=== PATIENT | male | born 1970 | race Hispanic/Latino ===

== ENCOUNTER 2017-11-26 14:37 | Inpatient (IN) | payer OTHER ==
[2017-11-26 14:38] VITALS: BMI 18.4
--- NOTE | 2017-11-26 15:40 | C.PDOC ---
History Of Present Illness 47-YEAR-OLD MALE, PRESENTS TO THE EMERGENCY DEPARTMENT WITH COMPLAINTS OF THREE- DAY HISTORY OF EPIGASTRIC ABDOMINAL PAIN, NON-BILIOUS/NON-BLOODY VOMITING AND NON-BLOODY/LOOSE-WATERY DIARRHEA. PAIN IS CONSTANT IN NATURE AND LOCALIZED. PT HAS A HISTORY OF PANCREATITIS, HAD A WHIPPLE PROCEDURE AT [facility] 2014. PATIENT STATES HE STILL HAS GALLBLADDER AND APPENDIX. DENIES FEVERS, CHILLS. EXAM: HEENT ANICTERIC ABD EPIG TEN, SOFT NO R/G Time Seen by Provider: 11/26/17 15:10 Chief Complaint (Nursing): Abdominal Pain History Per: Patient History/Exam Limitations: no limitations Onset/Duration Of Symptoms: Days Current Symptoms Are (Timing): Still Present Severity: Moderate Past Medical History Reviewed: Historical Data, Nursing Documentation, Vital Signs Vital Signs: Last Vital Signs Temp 98 F 11/26/17 18:29 Pulse 84 11/26/17 18:29 Resp 18 11/26/17 18:29 BP 153/96 H 11/26/17 18:29 Pulse Ox 99 11/26/17 18:39 - Medical History PMH: Pancreatitis - [facility] DILATION OF INTESTINE (08/06/15) DX ULTRASOUND-DIGESTIVE (07/31/15) ENDOSC RETROGRADE CHOLANGIOPANCREATOGRAPHY [ERCP] (08/14/15) ESOPHAGOGASTRODUODENOSCOPY [EGD] W/CLOSED BIOPSY (08/06/15) OTHER ENDOSCOPY OF SM INTEST (08/14/15) Family History: States: No Known Family Hx - Social History Hx Tobacco Use: No Hx Alcohol Use: Yes (years ago) Hx Substance Use: No Review Of Systems Except As Marked, All Systems Reviewed And Found Negative. Constitutional: Negative for: Fever, Chills Cardiovascular: Negative for: Chest Pain, Palpitations Respiratory: Negative for: Shortness of Breath Gastrointestinal: Positive for: Nausea, Vomiting, Abdominal Pain, Diarrhea Musculoskeletal: Negative for: Back Pain Skin: Negative for: Rash Neurological: Negative for: Weakness, Numbness, Headache, Dizziness Physical Exam - Physical Exam Appears: Non-toxic, No Acute Distress Skin: Warm, Dry, No Rash Head: Atraumatic, Normacephalic Eye(s): bilateral: Normal Inspection, PERRL, Other (ANICTERIC) Nose: Normal Oral Mucosa: Moist Lips: Normal Appearing Neck: Normal ROM Cardiovascular: Rhythm Regular, No Murmur Respiratory: Normal Breath Sounds, No Accessory Muscle Use Gastrointestinal/Abdominal: Soft, Tenderness (MILD, EPIGASTRIC), No Guarding, No Rebound Extremity: Normal ROM Neurological/Psych: Oriented x3, Normal Speech ED Course And Treatment - Laboratory Results Result Diagrams: 11/26/17 15:50 11/26/17 15:50 ECG: Interpreted By Me ECG Rhythm: Sinus Rhythm ECG Interpretation: No Acute Changes Rate From EC O2 Sat by Pulse Oximetry: 99 Pulse Ox Interpretation: Normal Progress - Re-Evaluation Re-evaluation Note: 11/26/17 18:38 FEELS BETTER APPEARS COMFORTABLE. PENDING CT REPORT - Data Reviewed Data Reviewed: Lab, Diagnostic imaging, Old records Disposition Counseled Patient/Family Regarding: Studies Performed, Diagnosis - Disposition Disposition Time: 19:00 Condition: STABLE Forms: [facility] (Algerian) - Clinical Impression Clinical Impression: Nausea, Diarrhea, Abdominal colic - Scribe Statement The provider has reviewed the documentation as recorded by the Scribe (NABIL RAMESH) All medical record entries made by the Scribe were at my direction and personally dictated by me. I have reviewed the chart and agree that the record accurately reflects my personal performance of the history, physical exam, medical decision making, and the department course for this patient. I have also personally directed, reviewed, and agree with the discharge instructions and disposition. Physician Patient Turnover Patient Signed Over To: Jasiel Hurst Handoff Comments: FU CT REPORT, DISPO
[2017-11-26] MEDS ORDERED: Iohexol 240 (50 ml) PO STA (15:41)
[2017-11-26] MEDS ORDERED: Sodium Chloride 0.9% 1,000 ML IV ONE ×2 (15:41)
[2017-11-26] MEDS ORDERED: Morphine 4 MG/ML VIAL ONE (15:48)
[2017-11-26] MEDS ORDERED: Iohexol 240 (50 ml) ONE (15:48)
[2017-11-26] MEDS ORDERED: Sodium Chloride 0.9% 1,000 ML ONE ×2 (15:49→16:43)
[2017-11-26 15:56] LABS: BASO % 0.4 % (0.0-2.0); EOS % 0.3 % (0.0-4.0); LYMPH # 1.4 K/uL (1.0-4.3); LYMPH % 15.4 % (20.0-40.0); MEAN CELL VOLUME 94.8 fL (80.0-94.0); MEAN CORPUSCULAR HEMOGLOBIN 32.4 pg (27.0-31.0); MEAN CORPUSCULAR HGB CONC 34.2 g/dL (33.0-37.0); MEAN PLATELET VOLUME 9.2 fL (7.2-11.7); MONO # 0.7 K/uL (0.0-0.8); MONO % 7.3 % (0.0-10.0); NEUT # 6.9 K/uL (1.8-7.0); NEUT % 76.6 % (50.0-75.0); NRBC % 0.1 % (0.0-2.0); RBC 4.63 Mil/uL (4.40-5.90); RED CELL DISTRIBUTION WIDTH 12.9 % (11.5-14.5); WHITE BLOOD COUNT 9.1 K/uL (4.8-10.8)
[2017-11-26 16:06] LABS: ALB/GLOB RATIO 1.3 (1.0-2.1); ALBUMIN 4.6 g/dL (3.5-5.0); ALT/SGPT 21 U/L (21-72); AST/SGOT 17 U/L (17-59); BLOOD UREA NITROGEN 12 mg/dL (9-20); CALCIUM 8.9 mg/dl (8.6-10.4); GFR AFRICAN-AMERICAN > 60; GFR NON-AFRICAN AMERICAN > 60; LIPASE 174 U/L (23-300)
[2017-11-26 16:53] LABS: SQUAMOUS EPITHIAL 2 /hpf (0-5); URINE BACTERIA MANY (<OCC); URINE BILIRUBIN NEGATIVE (NEGATIVE); URINE CLARITY Hazy (Clear); URINE COLOR Amber (YELLOW); URINE GLUCOSE (UA) NORMAL (Normal); URINE HYALINE CAST >20 /lpf (0-2); URINE NITRATE NEGATIVE (NEGATIVE); URINE PROTEIN 2+ mg/dL (NEGATIVE); URINE UROBILINOGEN NORMAL mg/dL (0.2-1.0)
[2017-11-26 16:55] LABS: URINE BLOOD 3+ (NEGATIVE); URINE LEUKOCYTE ESTERASE 3+ Leu/uL (Negative)
[2017-11-26] MEDS ORDERED: Iodixanol 320 MG/ML 100 ML BOTTLE IV ONE (17:21)
[2017-11-26 19:31] VITALS: RESP 20
--- NOTE | 2017-11-26 19:35 | CT ---
EXAM: CT Abdomen and Pelvis With Intravenous Contrast EXAM DATE/TIME: Exam ordered 11/26/2017 3:41 PM CLINICAL HISTORY: 47 years old, male; Pain; Abdominal pain; Periumbilical; Prior surgery; Surgery date: 6+ months; Surgery type: ? Whipple, bypass; Additional info: Abd pain ho whipple TECHNIQUE: Axial computed tomography images of the abdomen and pelvis with intravenous contrast. All CT scans at this facility use one or more dose reduction techniques, viz.: automated exposure control; ma/kV adjustment per patient size (including targeted exams where dose is matched to indication; i.e. head); or iterative reconstruction technique. Coronal and sagittal reformatted images were created and reviewed. CONTRAST: 100 mL of visipaque administered intravenously. COMPARISON: CT - PANCREATIC PROTOCOL 2015-08-01 15:41 FINDINGS: Lower thorax: No acute findings. ABDOMEN: Liver: There is mild central intrahepatic ductal dilatation. The liver measures 20 cm increasing: Span. Gallbladder and bile ducts: See above. Pancreas: There is dilatation of the pancreatic duct. Heterogeneous low density is noted within the pancreatic head. The cyst which was noted within the pancreatic head on a previous CT dated 08/01/2015 has resolved. The area of heterogeneous low density measures 2.3 x 2.9 x 3.1 cm. Calcification is noted within the pancreatic parenchyma. Spleen: Unremarkable. No splenomegaly. Adrenals: Unremarkable. No mass. Kidneys and ureters: There is a calculus within a lower pole infundibula of the right kidney measuring 1 x 1.3 cm by 1.2 cm.. No hydronephrosis. Stomach and bowel: There is wall thickening thickening noted in the region of the gastric antrum and duodenal bulb. There is inflammatory change noted within the perigastric and periduodenal fat at these levels. A fluid collection is noted the within the wall of the gastric antrum measuring 2.2 x 0.9 by 5 x 2.1 cm. No obstruction. Appendix: No findings to suggest acute appendicitis. PELVIS: Bladder: Unremarkable. No mass. Reproductive: Unremarkable as visualized. ABDOMEN and PELVIS: Intraperitoneal space: Unremarkable. No free air. No significant fluid collection. Bones/joints: No acute fracture. No dislocation. Soft tissues: A healed midline abdominal incision. There is a small umbilical hernia containing fat. Vasculature: Unremarkable. No abdominal aortic aneurysm. Lymph nodes: The prostate measures 2.9 x 4.4 by 3.8 cm. Small lymph nodes are noted within the mesentery. IMPRESSION: 1. Mucosal /wall thickening noted of the gastric antrum and duodenal bulb with the adjacent inflammatory change and heterogeneous enlargement of the pancreatic head. The appearance suggests gastric antritis or duodenitis 2. A cyst noted within the pancreatic head on the previous examination has resolved. The bypass mentioned in the history may have been related to a cyst gastrostomy. The pancreatic head is enlarged and the pancreatic duct and common bile duct are mildly dilated (double duct sign). Differential diagnostic considerations include post pancreatitis stricture versus pancreatic head neoplasm. 3. An intramural fluid collection is noted within the right lateral wall of the gastric antrum. This may represent an intramural pseudocyst. It was not present on the previous study 4. Calculus in a dilated lower infundibulum of the right kidney
[2017-11-26] MEDS ORDERED: Ciprofloxacin 400mg/200ml D5W 400 MG/200 ML BAG IVPB STA (20:00)
[2017-11-26] MEDS ORDERED: HYDROmorphone 1 mg/ml ISec IVP PRN (20:05)
[2017-11-26] MEDS ORDERED: Ciprofloxacin 400mg/200ml D5W 400 MG/200 ML BAG IVPB ONE (20:16)
[2017-11-26] MEDS: Dextrose 5%/0.45% NS 1,000 ML IV SCH (20:20)
--- NOTE | 2017-11-27 01:14 | CP.PCM.CON ---
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 Pt was being seen at [facility] where he had as pt describes a pancreatic cystgastrostomy in 2015. Pt reports his symptoms have been well controlled since then. He recently started having umbilical pain yesterday with associated emesis and diarrhea. His emesis has been dark brown, non-billous and non-bloody. Diarrhea has been non-bloody as well. Pt denies any fevers, chills, bloating or obstructive symptoms. He states he has no appetite. Pt states this pain is clearly different than his previous pancreatitis experiences. He also reports he has not had recent follow up with GI or Surgery. Pt was previously seen by Dr Romero and his GI team in 2015 at [facility] [place], [place]. Review of Systems - Review of Systems All systems: reviewed and no additional remarkable complaints except (as per hpi ) Past Patient History - Past Medical History & Family History Past Medical History?: Yes - Past Social History Smoking Status: Never Smoked - CARDIAC Hx Cardiac Disorders: No - PULMONARY Hx Respiratory Disorders: No - NEUROLOGICAL Hx Neurological Disorder: No - HEENT Hx HEENT Problems: No - RENAL Hx Chronic Kidney Disease: No - ENDOCRINE/METABOLIC Hx Endocrine Disorders: No - HEMATOLOGICAL/ONCOLOGICAL Hx Blood Disorders: No Hx Blood Transfusions: No - INTEGUMENTARY Hx Dermatological Problems: No - MUSCULOSKELETAL/RHEUMATOLOGICAL Hx Falls: No - GASTROINTESTINAL Hx Gastrointestinal Disorders: Yes Hx Pancreatitis: Yes - GENITOURINARY/GYNECOLOGICAL Hx Genitourinary Disorders: No - PSYCHIATRIC Hx Psychophysiologic Disorder: No Hx Substance Use: No - SURGICAL HISTORY Hx Surgeries: No (MUTIPLE EGD'S) - ANESTHESIA Hx Anesthesia: No Hx Anesthesia Reactions: No Hx Malignant Hyperthermia: No Has any member of the family had a problem w/ anesthesia?: No Meds Allergies/Adverse Reactions: Allergies Allergy/AdvReac Type Severity Reaction Status Date / Time Penicillins Allergy Verified 11/26/17 15:05 - Medications Medications: Current Medications Hydromorphone HCl (Dilaudid) 1 mg IVP Q4H PRN PRN Reason: Pain, moderate (4-7) Last Admin: 11/26/17 20:57 Dose: 1 mg Dextrose/Sodium Chloride (Dextrose 5%/0.45% Ns 1000 Ml) 1,000 mls @ 100 mls/hr IV .Q10H [facility] Last Admin: 11/26/17 20:20 Dose: 100 mls/hr Ondansetron HCl (Zofran Inj) 4 mg IVP Q8 PRN PRN Reason: Nausea/Vomiting Pantoprazole Sodium (Protonix Inj) 40 mg IVP DAILY [facility] Physical Exam - Constitutional Appears: Non-toxic, No Acute Distress - Head Exam Head Exam: NORMAL INSPECTION - Eye Exam Eye Exam: Normal appearance - Respiratory Exam Respiratory Exam: absent: Accessory Muscle Use, Respiratory Distress - Cardiovascular Exam Cardiovascular Exam: REGULAR RHYTHM. absent: Tachycardia - GI/Abdominal Exam GI & Abdominal Exam: Soft, Tenderness (epigastric). absent: Distended, Firm, Guarding, Hernia - Rectal Exam Rectal Exam: absent: Deferred - Neurological Exam Neurological exam: Alert, Oriented x3 - Psychiatric Exam Psychiatric exam: Normal Affect, Normal Mood - Skin Skin Exam: Normal Color, Warm Results - Vital Signs Recent Vital Signs: Last Vital Signs Temp 98.1 F 11/26/17 23:53 Pulse 65 11/26/17 23:53 Resp 20 11/26/17 23:53 BP 150/92 H 11/26/17 23:53 Pulse Ox 98 11/26/17 23:53 - Labs Result Diagrams: 11/26/17 15:50 11/26/17 15:50 Labs: Laboratory Results - last 24 hr 11/26/17 11/26/17 11/26/17 15:50 15:50 15:50 WBC 9.1 RBC 4.63 Hgb 15.0 D Hct 43.8 MCV 94.8 H MCH 32.4 H MCHC 34.2 RDW 12.9 Plt Count 261 MPV 9.2 Neut % (Auto) 76.6 H Lymph % (Auto) 15.4 L Cottle % (Auto) 7.3 Eos % (Auto) 0.3 Baso % (Auto) 0.4 Neut # 6.9 Lymph # 1.4 Cottle # 0.7 Eos # 0.0 Baso # 0.0 Sodium 137 Potassium 4.0 Chloride 98 Carbon Dioxide 25 Anion Gap 18 BUN 12 Creatinine 0.9 Est GFR ( Amer) > 60 Est GFR (Non-Af Amer) > 60 Random Glucose 124 H Calcium 8.9 Total Bilirubin 1.3 AST 17 ALT 21 Alkaline Phosphatase 68 Total Protein 8.2 Albumin 4.6 Globulin 3.6 Albumin/Globulin Ratio 1.3 Lipase 174 Urine Color [place] Urine Clarity Hazy Urine pH 5.0 Ur Specific [place] 1.018 Urine Protein 2+ H Urine Glucose (UA) Normal Urine Ketones Negative Urine Blood 3+ H Urine Nitrate Negative Urine Bilirubin Negative Urine Urobilinogen Normal Ur Leukocyte Esterase 3+ H Urine WBC (Auto) 103 H Urine RBC (Auto) 59 H Ur Squamous Epith Cells 2 Urine Bacteria Many H Hyaline Casts >20 H Assessment & Plan - Assessment and Plan (Free Text) Assessment: 47M with hx of pancreatic cyst now presents with umbilical pain and N/V Plan: maintain NPO IV fluids zofran, pain meds PRN will consult GI Dr Romero who is familiar with pt no immediate surgical intervention required [facility]
[2017-11-27] MEDS: Dextrose 5%/0.45% NS 1,000 ML IV SCH ×4 (06:57→17:16)
[2017-11-27 07:18] LABS: BASO % 0.8 % (0.0-2.0); EOS # 0.2 K/uL (0.0-0.7); EOS % 3.5 % (0.0-4.0); HEMOGLOBIN 13.7 g/dL (12.0-18.0); LYMPH % 36.7 % (20.0-40.0); MEAN CORPUSCULAR HEMOGLOBIN 32.7 pg (27.0-31.0); MEAN CORPUSCULAR HGB CONC 34.1 g/dL (33.0-37.0); MEAN PLATELET VOLUME 9.5 fL (7.2-11.7); MONO # 0.5 K/uL (0.0-0.8); MONO % 8.3 % (0.0-10.0); NEUT # 2.8 K/uL (1.8-7.0); NEUT % 50.7 % (50.0-75.0); NRBC % 0.1 % (0.0-2.0); RBC 4.18 Mil/uL (4.40-5.90); RED CELL DISTRIBUTION WIDTH 12.8 % (11.5-14.5); WHITE BLOOD COUNT 5.6 K/uL (4.8-10.8)
[2017-11-27 07:32] LABS: INR 1.1; PROTHROMBIN TIME 11.9 SECONDS (9.7-12.2)
[2017-11-27 08:24] LABS: ALB/GLOB RATIO 1.2 (1.0-2.1); ALBUMIN 3.7 g/dL (3.5-5.0); ALT/SGPT 19 U/L (21-72); AMYLASE 99 U/L (30-110); AST/SGOT 18 U/L (17-59); BLOOD UREA NITROGEN 11 mg/dL (9-20); CALCIUM 8.6 mg/dl (8.6-10.4); GFR AFRICAN-AMERICAN > 60; GFR NON-AFRICAN AMERICAN > 60; LIPASE 182 U/L (23-300)
--- NOTE | 2017-11-27 09:06 | CP.PCM.PN ---
Subjective - Date & Time of Evaluation Date of Evaluation: 11/27/17 Time of Evaluation: 10:00 - Subjective Subjective: Dr. Ferguson note: Patient is a 47 year old male with a history of etoh abuse and pancreatitis. Patient came to the hospital with abdominal pain and nausea but no vomiting. He is feeling much better with some mild abominal pain. He is feeling like eating. He has no pain with urination. Objective - Vital Signs/Intake and Output Vital Signs (last 24 hours): Temp Pulse Resp BP Pulse Ox 97.6 F 67 20 150/95 H 100 11/27/17 08:02 11/27/17 08:02 11/27/17 08:02 11/27/17 08:02 11/27/17 08:02 Intake and Output: 11/27/17 11/27/17 06:59 18:59 Intake Total 1050 Output Total 101 Balance 949 - Medications Medications: Current Medications Hydromorphone HCl (Dilaudid) 1 mg IVP Q4H PRN PRN Reason: Pain, moderate (4-7) Last Admin: 11/27/17 07:35 Dose: 1 mg Dextrose/Sodium Chloride (Dextrose 5%/0.45% Ns 1000 Ml) 1,000 mls @ 100 mls/hr IV .Q10H [facility] Last Admin: 11/27/17 08:37 Dose: 100 mls/hr Ondansetron HCl (Zofran Inj) 4 mg IVP Q8 PRN PRN Reason: Nausea/Vomiting Pantoprazole Sodium (Protonix Inj) 40 mg IVP DAILY [facility] - Labs Labs: 11/27/17 06:16 11/27/17 06:16 PT 11.9 SECONDS (9.7-12.2) 11/27/17 07:15 INR 1.1 11/27/17 07:15 - Constitutional Appears: Non-toxic, No Acute Distress - Eye Exam Eye Exam: Normal appearance - ENT Exam ENT Exam: Normal Exam - Neck Exam Neck Exam: Normal Inspection - Respiratory Exam Respiratory Exam: Clear to Ausculation Bilateral. absent: Rales, Rhonchi, Wheezes - Cardiovascular Exam Cardiovascular Exam: REGULAR RHYTHM, RRR, +S1, +S2. absent: Gallop, Rubs - GI/Abdominal Exam GI & Abdominal Exam: Soft, Tenderness, Normal Bowel Sounds. absent: Distended, Guarding - Extremities Exam Extremities Exam: Normal Inspection. absent: Pedal Edema - Back Exam Back Exam: NORMAL INSPECTION - Psychiatric Exam Psychiatric exam: Normal Affect, Normal Mood Assessment and Plan (1) Pancreatitis Assessment & Plan: Patient pain has improved, advance diet to liquid, consider advancing if tolerated. Surgery consulted for pancreatis cyst, they reccomend consult of Dr. Romero. Will follow up GI reccs. Status: Acute (2) UTI (urinary tract infection) Assessment & Plan: Started Cipro, follow up urine culture and sensitivty. Culture grew gram negative rods. Status: Acute (3) Prophylactic measure Assessment & Plan: Lovenox 30mg daily Protonix 40mg daily Status: Acute
--- NOTE | 2017-11-27 10:17 | CP.PCM.PN ---
Objective - Vital Signs/Intake and Output Vital Signs (last 24 hours): Temp Pulse Resp BP Pulse Ox 97.6 F 67 20 150/95 H 100 11/27/17 08:02 11/27/17 08:02 11/27/17 08:02 11/27/17 08:02 11/27/17 08:02 Intake and Output: 11/27/17 11/27/17 06:59 18:59 Intake Total 1050 Output Total 101 Balance 949 - Medications Medications: Current Medications Hydromorphone HCl (Dilaudid) 1 mg IVP Q4H PRN PRN Reason: Pain, moderate (4-7) Last Admin: 11/27/17 07:35 Dose: 1 mg Dextrose/Sodium Chloride (Dextrose 5%/0.45% Ns 1000 Ml) 1,000 mls @ 100 mls/hr IV .Q10H [facility] Last Admin: 11/27/17 08:37 Dose: 100 mls/hr Ondansetron HCl (Zofran Inj) 4 mg IVP Q8 PRN PRN Reason: Nausea/Vomiting Pantoprazole Sodium (Protonix Inj) 40 mg IVP DAILY [facility] Last Admin: 11/27/17 09:51 Dose: 40 mg - Labs Labs: 11/27/17 06:16 11/27/17 06:16 PT 11.9 SECONDS (9.7-12.2) 11/27/17 07:15 INR 1.1 11/27/17 07:15
[2017-11-27] MEDS ORDERED: Tmp-Smz 800 mg-160 mg DS Tab PO SCH (11:45)
[2017-11-27] MEDS: LIPASE/PROTEASE/AMYLASE 4,200 U ECC PO SCH ×2 (13:12→17:14)
--- NOTE | 2017-11-27 15:14 | CP.PCM.CON ---
<Sangeeta Alvarado - Last Filed: 11/27/17 15:26> History of Present Illness - History of Present Illness History of Present Illness: GI Fellow PGY4 Consult Note This is a 47yM with h/o chronic recurrent pancreatitis who presents for evaluation of periumbilical pain associated with nausea and 6 episodes of vomiting, watery diarrhea for 2days. Pt denies any fevers, chills, and reports no vomiting or diarrhea for 24hrs. The patient states that he has had numerous episodes of pancreatitis (he states atleast 7-8 episodes in the past 5 years). It was thought that his pancreatitis was related to ETOH, and he continues to drink wine 2-3glasses 2-3 times a week. He has previously been under the care of Dr. Sanchez (GI at [facility]) who has done extensive testing. Pt denies any weightloss and no issues prior to this acute event. 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 During his past admission he underwent EGD with dilation and attempted ERCP with PD stent placement, unsuccessful, believed to be due to disconnected pancreatic duct. Pt was transferred to Dr. Britt at [facility] in [place], where he underwent a gastroenterostomy and drainage of cyst. Pt reports he never followed up with surgery or GI afterwards. ROS: A 12pt ROS was negative except as above. PmHx: As stated in HPI Psx: As stated in HPI SHx: hx of tobacco 1ppd for 15yrs quit 2014, drinks wine no hard liquor, no drug use FHx: denies fx of colon or pancreatic cancer Past Patient History - Past Medical History & Family History Past Medical History?: Yes - Past Social History Smoking Status: Never Smoked - CARDIAC Hx Cardiac Disorders: No - PULMONARY Hx Respiratory Disorders: No - NEUROLOGICAL Hx Neurological Disorder: No - HEENT Hx HEENT Problems: No - RENAL Hx Chronic Kidney Disease: No - ENDOCRINE/METABOLIC Hx Endocrine Disorders: No - HEMATOLOGICAL/ONCOLOGICAL Hx Blood Disorders: No Hx Blood Transfusions: No - INTEGUMENTARY Hx Dermatological Problems: No - MUSCULOSKELETAL/RHEUMATOLOGICAL Hx Falls: No - GASTROINTESTINAL Hx Gastrointestinal Disorders: Yes Hx Pancreatitis: Yes - GENITOURINARY/GYNECOLOGICAL Hx Genitourinary Disorders: No - PSYCHIATRIC Hx Psychophysiologic Disorder: No Hx Substance Use: No - SURGICAL HISTORY Hx Surgeries: No (MUTIPLE EGD'S) - ANESTHESIA Hx Anesthesia: No Hx Anesthesia Reactions: No Hx Malignant Hyperthermia: No Has any member of the family had a problem w/ anesthesia?: No Meds Allergies/Adverse Reactions: Allergies Allergy/AdvReac Type Severity Reaction Status Date / Time Penicillins Allergy Verified 11/26/17 15:05 - Medications Medications: Current Medications Ciprofloxacin (Cipro) 500 mg PO BID [facility] Last Admin: 11/27/17 12:12 Dose: 500 mg Hydromorphone HCl (Dilaudid) 1 mg IVP Q4H PRN PRN Reason: Pain, moderate (4-7) Last Admin: 11/27/17 12:12 Dose: 1 mg Dextrose/Sodium Chloride (Dextrose 5%/0.45% Ns 1000 Ml) 1,000 mls @ 100 mls/hr IV .Q10H [facility] Last Admin: 11/27/17 08:37 Dose: 100 mls/hr Ondansetron HCl (Zofran Inj) 4 mg IVP Q8 PRN PRN Reason: Nausea/Vomiting Pantoprazole Sodium (Protonix Inj) 40 mg IVP DAILY [facility] Last Admin: 11/27/17 09:51 Dose: 40 mg Physical Exam - Constitutional Appears: Non-toxic, No Acute Distress - Head Exam Head Exam: ATRAUMATIC, NORMAL INSPECTION, NORMOCEPHALIC - Eye Exam Eye Exam: EOMI, Normal appearance, PERRL - ENT Exam ENT Exam: Mucous Membranes Moist, Normal Exam - Neck Exam Neck exam: Positive for: Normal Inspection - Respiratory Exam Respiratory Exam: Clear to Auscultation Bilateral, NORMAL BREATHING PATTERN - Cardiovascular Exam Cardiovascular Exam: REGULAR RHYTHM - GI/Abdominal Exam GI & Abdominal Exam: Normal Bowel Sounds - Rectal Exam Rectal Exam: NORMAL INSPECTION - Extremities Exam Extremities exam: Positive for: normal inspection - Back Exam Back exam: NORMAL INSPECTION - Neurological Exam Neurological exam: Alert, Oriented x3 - Psychiatric Exam Psychiatric exam: Normal Affect, Normal Mood - Skin Skin Exam: Dry, Intact, Normal Color, Warm Results - Vital Signs Recent Vital Signs: Last Vital Signs Temp 97.6 F 11/27/17 08:02 Pulse 67 11/27/17 08:02 Resp 20 11/27/17 08:02 BP 150/95 H 11/27/17 08:02 Pulse Ox 100 11/27/17 08:02 - Labs Result Diagrams: 11/27/17 06:16 11/27/17 06:16 Labs: Laboratory Results - last 24 hr 11/26/17 11/26/17 11/26/17 15:50 15:50 15:50 WBC 9.1 RBC 4.63 Hgb 15.0 D Hct 43.8 MCV 94.8 H MCH 32.4 H MCHC 34.2 RDW 12.9 Plt Count 261 MPV 9.2 Neut % (Auto) 76.6 H Lymph % (Auto) 15.4 L [place] % (Auto) 7.3 Eos % (Auto) 0.3 Baso % (Auto) 0.4 Neut # 6.9 Lymph # 1.4 [place] # 0.7 Eos # 0.0 Baso # 0.0 PT INR Sodium 137 Potassium 4.0 Chloride 98 Carbon Dioxide 25 Anion Gap 18 BUN 12 Creatinine 0.9 Est GFR ( Amer) > 60 Est GFR (Non-Af Amer) > 60 Random Glucose 124 H Calcium 8.9 Total Bilirubin 1.3 AST 17 ALT 21 Alkaline Phosphatase 68 Total Protein 8.2 Albumin 4.6 Globulin 3.6 Albumin/Globulin Ratio 1.3 Amylase Lipase 174 Urine Color [place] Urine Clarity Hazy Urine pH 5.0 Ur Specific [place] 1.018 Urine Protein 2+ H Urine Glucose (UA) Normal Urine Ketones Negative Urine Blood 3+ H Urine Nitrate Negative Urine Bilirubin Negative Urine Urobilinogen Normal Ur Leukocyte Esterase 3+ H Urine WBC (Auto) 103 H Urine RBC (Auto) 59 H Ur Squamous Epith Cells 2 Urine Bacteria Many H Hyaline Casts >20 H 11/27/17 11/27/17 11/27/17 06:16 06:16 07:15 WBC 5.6 RBC 4.18 L Hgb 13.7 Hct 40.1 MCV 96.0 H MCH 32.7 H MCHC 34.1 RDW 12.8 Plt Count 191 MPV 9.5 Neut % (Auto) 50.7 Lymph % (Auto) 36.7 [place] % (Auto) 8.3 Eos % (Auto) 3.5 Baso % (Auto) 0.8 Neut # 2.8 Lymph # 2.0 [place] # 0.5 Eos # 0.2 Baso # 0.0 PT 11.9 INR 1.1 Sodium 131 L Potassium 3.6 Chloride 98 Carbon Dioxide 27 Anion Gap 9 L BUN 11 Creatinine 0.7 L Est GFR ( Amer) > 60 Est GFR (Non-Af Amer) > 60 Random Glucose 103 Calcium 8.6 Total Bilirubin 0.8 AST 18 ALT 19 L Alkaline Phosphatase 54 Total Protein 6.8 Albumin 3.7 Globulin 3.1 Albumin/Globulin Ratio 1.2 Amylase 99 Lipase 182 Urine Color Urine Clarity Urine pH Ur Specific [place] Urine Protein Urine Glucose (UA) Urine Ketones Urine Blood Urine Nitrate Urine Bilirubin Urine Urobilinogen Ur Leukocyte Esterase Urine WBC (Auto) Urine RBC (Auto) Ur Squamous Epith Cells Urine Bacteria Hyaline Casts Assessment & Plan - Assessment and Plan (Free Text) Assessment: This is a 47yM with hx of chronic pancreatitis presenting with abdominal pain, vomiting and diarrhea for 2 days. 1. Abdominal pain, vomiting, diarrhea-resolved ddx gastroenteritis 2. Chronic pancreatitis- possible pancreatic insufficiency 3. Hx of etoh abuse, current drinker 4. Gastritis on prior EGD Plan: -Continue supportive care with pain control and anti-emetics -Clear liquid diet and advance as tolerated -Continue PPI daily -Start Pancreatic enzymes -Will order stool elastase -CT imaging reviewed with pancreatic head abnormality, will need outpt EUS -Will continue to follow closely <Jeromy Romero - Last Filed: 11/27/17 17:12> Meds - Medications Medications: Current Medications Ciprofloxacin (Cipro) 500 mg PO BID [facility] Last Admin: 11/27/17 12:12 Dose: 500 mg Hydromorphone HCl (Dilaudid) 1 mg IVP Q4H PRN PRN Reason: Pain, moderate (4-7) Last Admin: 11/27/17 12:12 Dose: 1 mg Dextrose/Sodium Chloride (Dextrose 5%/0.45% Ns 1000 Ml) 1,000 mls @ 100 mls/hr IV .Q10H [facility] Last Admin: 11/27/17 08:37 Dose: 100 mls/hr Ondansetron HCl (Zofran Inj) 4 mg IVP Q8 PRN PRN Reason: Nausea/Vomiting Pantoprazole Sodium (Protonix Inj) 40 mg IVP DAILY [facility] Last Admin: 11/27/17 09:51 Dose: 40 mg Results - Vital Signs Recent Vital Signs: Last Vital Signs Temp 97.9 F 11/27/17 15:00 Pulse 61 11/27/17 15:00 Resp 20 11/27/17 15:00 BP 131/79 11/27/17 15:00 Pulse Ox 100 11/27/17 15:00 - Labs Result Diagrams: 11/27/17 06:16 11/27/17 06:16 Labs: Laboratory Results - last 24 hr 11/27/17 11/27/17 11/27/17 06:16 06:16 07:15 WBC 5.6 RBC 4.18 L Hgb 13.7 Hct 40.1 MCV 96.0 H MCH 32.7 H MCHC 34.1 RDW 12.8 Plt Count 191 MPV 9.5 Neut % (Auto) 50.7 Lymph % (Auto) 36.7 [place] % (Auto) 8.3 Eos % (Auto) 3.5 Baso % (Auto) 0.8 Neut # 2.8 Lymph # 2.0 [place] # 0.5 Eos # 0.2 Baso # 0.0 PT 11.9 INR 1.1 Sodium 131 L Potassium 3.6 Chloride 98 Carbon Dioxide 27 Anion Gap 9 L BUN 11 Creatinine 0.7 L Est GFR ( Amer) > 60 Est GFR (Non-Af Amer) > 60 Random Glucose 103 Calcium 8.6 Total Bilirubin 0.8 AST 18 ALT 19 L Alkaline Phosphatase 54 Total Protein 6.8 Albumin 3.7 Globulin 3.1 Albumin/Globulin Ratio 1.2 Amylase 99 Lipase 182 Attending/Attestation - Attestation I have personally seen and examined this patient.: Yes I have fully participated in the care of the patient.: Yes I have reviewed all pertinent clinical information: Yes Notes (Text): 11/27/17 17:09 47 year old male with h/o chronic pancreatitis c/b pseudocyst s/p prior surgical drainage, gastric outlet obstruction s/p gastroenterostomy admitted with abdominal pain and vomiting. 1. Abdominal pain 2. Chronic pancreatitis Plan: -CT- reviewed, no pseudocyst, abnormal imaging of panc head -recommend outpatient EUS when acute illness resolves -symptoms are improving -recommend starting panc enzymes, ppi daily -advise etoh/smoking abstiencne -check fecal elastase -low fat diet as tolerated
[2017-11-28] MEDS: Dextrose 5%/0.45% NS 1,000 ML IV SCH ×3 (02:47→23:06)
--- NOTE | 2017-11-28 08:46 | CP.PCM.PN ---
Subjective - Date & Time of Evaluation Date of Evaluation: 11/28/17 Time of Evaluation: 08:44 - Subjective Subjective: Surgery Pt s&e. NAEON. pain improved. Denies F/C/N/V/D/CP/SOB. Objective - Vital Signs/Intake and Output Vital Signs (last 24 hours): Temp Pulse Resp BP Pulse Ox 97.8 F 82 20 133/89 99 11/28/17 08:04 11/28/17 08:04 11/28/17 08:04 11/28/17 08:04 11/28/17 08:04 Intake and Output: 11/28/17 11/28/17 06:59 18:59 Intake Total 1000 900 Balance 1000 900 - Medications Medications: Current Medications Ciprofloxacin (Cipro) 500 mg PO BID [facility] Last Admin: 11/27/17 17:14 Dose: 500 mg Enoxaparin Sodium (Lovenox) 30 mg SC DAILY [facility] Hydromorphone HCl (Dilaudid) 1 mg IVP Q4H PRN PRN Reason: Pain, moderate (4-7) Last Admin: 11/28/17 01:39 Dose: 1 mg Dextrose/Sodium Chloride (Dextrose 5%/0.45% Ns 1000 Ml) 1,000 mls @ 100 mls/hr IV .Q10H [facility] Last Admin: 11/28/17 02:47 Dose: 100 mls/hr Ondansetron HCl (Zofran Inj) 4 mg IVP Q8 PRN PRN Reason: Nausea/Vomiting Pantoprazole Sodium (Protonix Inj) 40 mg IVP DAILY [facility] Last Admin: 11/27/17 09:51 Dose: 40 mg - Labs Labs: 11/27/17 06:16 11/27/17 06:16 PT 11.9 SECONDS (9.7-12.2) 11/27/17 07:15 INR 1.1 11/27/17 07:15 - Constitutional Appears: No Acute Distress - Head Exam Head Exam: ATRAUMATIC, NORMAL INSPECTION, NORMOCEPHALIC - Eye Exam Eye Exam: EOMI, Normal appearance, PERRL Pupil Exam: NORMAL ACCOMODATION, PERRL - ENT Exam ENT Exam: Mucous Membranes Moist, Normal Exam - Neck Exam Neck Exam: Full ROM, Normal Inspection. absent: Lymphadenopathy - Respiratory Exam Respiratory Exam: Clear to Ausculation Bilateral, NORMAL BREATHING PATTERN - Cardiovascular Exam Cardiovascular Exam: REGULAR RHYTHM, +S1, +S2. absent: Murmur - GI/Abdominal Exam GI & Abdominal Exam: Soft, Tenderness, Normal Bowel Sounds. absent: Distended Additional comments: Epigatric TTP - Extremities Exam Extremities Exam: Full ROM, Normal Capillary Refill, Normal Inspection. absent : Joint Swelling, Pedal Edema - Back Exam Back Exam: NORMAL INSPECTION - Neurological Exam Neurological Exam: Alert, Awake, CN II-XII Intact, Normal Gait, Oriented x3 - Psychiatric Exam Psychiatric exam: Normal Affect, Normal Mood - Skin Skin Exam: Dry, Intact, Normal Color, Warm Assessment and Plan - Assessment and Plan (Free Text) Assessment: 47M with hx of pancreatic cyst now presents with umbilical pain and N/V: improving Plan: zofran, pain meds PRN GI rec out pt EUS no immediate surgical intervention required will d/w Dr Neville
[2017-11-28] MEDS: Enoxaparin 30 mg Syringe SC SCH (10:17)
[2017-11-28] MEDS: LIPASE/PROTEASE/AMYLASE 4,200 U ECC PO SCH ×3 (10:17→17:43)
--- NOTE | 2017-11-28 11:07 | CP.PCM.PN ---
<Sangeeta Alvarado - Last Filed: 11/28/17 11:07> Subjective - Date & Time of Evaluation Date of Evaluation: 11/28/17 Time of Evaluation: 08:40 - Subjective Subjective: GI Fellow PGY4 Progress Note Pt seen and evaluated at bedside, pt tolerating diet. Reports mild abdominal discomfort but no vomiting or diarrhea. ROS: A 12pt ROS was negative except as above. Objective - Vital Signs/Intake and Output Vital Signs (last 24 hours): Temp Pulse Resp BP Pulse Ox 97.8 F 82 20 133/89 99 11/28/17 08:04 11/28/17 08:04 11/28/17 08:04 11/28/17 08:04 11/28/17 08:04 Intake and Output: 11/28/17 11/28/17 06:59 18:59 Intake Total 1000 900 Balance 1000 900 - Medications Medications: Current Medications Ciprofloxacin (Cipro) 500 mg PO BID [facility] Last Admin: 11/28/17 10:17 Dose: 500 mg Enoxaparin Sodium (Lovenox) 30 mg SC DAILY [facility] Last Admin: 11/28/17 10:17 Dose: 30 mg Hydromorphone HCl (Dilaudid) 1 mg IVP Q4H PRN PRN Reason: Pain, moderate (4-7) Last Admin: 11/28/17 09:02 Dose: 1 mg Dextrose/Sodium Chloride (Dextrose 5%/0.45% Ns 1000 Ml) 1,000 mls @ 100 mls/hr IV .Q10H [facility] Last Admin: 11/28/17 02:47 Dose: 100 mls/hr Ondansetron HCl (Zofran Inj) 4 mg IVP Q8 PRN PRN Reason: Nausea/Vomiting Pantoprazole Sodium (Protonix Ec Tab) 40 mg PO DAILY [facility] Polyethylene Glycol (Miralax) 17 gm PO DAILY [facility] - Labs Labs: 11/27/17 06:16 11/27/17 06:16 PT 11.9 SECONDS (9.7-12.2) 11/27/17 07:15 INR 1.1 11/27/17 07:15 - Constitutional Appears: Non-toxic, No Acute Distress - Head Exam Head Exam: ATRAUMATIC, NORMAL INSPECTION, NORMOCEPHALIC - Eye Exam Eye Exam: EOMI, Normal appearance, PERRL Pupil Exam: PERRL - ENT Exam ENT Exam: Mucous Membranes Moist, Normal Exam - Neck Exam Neck Exam: Full ROM, Normal Inspection - Respiratory Exam Respiratory Exam: Clear to Ausculation Bilateral, NORMAL BREATHING PATTERN - Cardiovascular Exam Cardiovascular Exam: REGULAR RHYTHM - GI/Abdominal Exam GI & Abdominal Exam: Soft, Normal Bowel Sounds. absent: Distended, Guarding, Tenderness - Extremities Exam Extremities Exam: Full ROM - Back Exam Back Exam: NORMAL INSPECTION - Neurological Exam Neurological Exam: Alert, Awake, Oriented x3 - Psychiatric Exam Psychiatric exam: Normal Affect, Normal Mood - Skin Skin Exam: Dry, Intact, Normal Color, Warm Assessment and Plan - Assessment and Plan (Free Text) Assessment: This is a 47yM presenting with abdominal pain, vomiting and diarrhea for 2 days. He has a h/o chronic pancreatitis and pseudocyst s/p prior surgical drainage, gastric outlet obstruction s/p gastroenterostomy. 1. Abdominal pain, vomiting, diarrhea-resolved 2. Chronic pancreatitis- possible pancreatic insufficiency 3. Hx of etoh abuse, current drinker 4. Gastritis on prior EGD Plan: -Continue supportive care with pain control and anti-emetics -Will advance to low fat diet, small frequent meals -Continue PPI daily -Increase to appropriate dose of pancreatic enzymes -Ordered stool elastase -CT imaging reviewed with pancreatic head abnormality, will need outpt EUS -Bowel regimen -Please call with any questions or concerns <Jeromy Romero - Last Filed: 11/28/17 13:06> Objective - Vital Signs/Intake and Output Vital Signs (last 24 hours): Temp Pulse Resp BP Pulse Ox 97.8 F 82 20 133/89 99 11/28/17 08:04 11/28/17 08:04 11/28/17 08:04 11/28/17 08:04 11/28/17 08:04 Intake and Output: 11/28/17 11/28/17 06:59 18:59 Intake Total 1000 900 Balance 1000 900 - Medications Medications: Current Medications Ciprofloxacin (Cipro) 500 mg PO BID [facility] Last Admin: 11/28/17 10:17 Dose: 500 mg Enoxaparin Sodium (Lovenox) 30 mg SC DAILY [facility] Last Admin: 11/28/17 10:17 Dose: 30 mg Hydromorphone HCl (Dilaudid) 1 mg IVP Q4H PRN PRN Reason: Pain, moderate (4-7) Last Admin: 11/28/17 09:02 Dose: 1 mg Dextrose/Sodium Chloride (Dextrose 5%/0.45% Ns 1000 Ml) 1,000 mls @ 100 mls/hr IV .Q10H [facility] Last Admin: 11/28/17 02:47 Dose: 100 mls/hr Ondansetron HCl (Zofran Inj) 4 mg IVP Q8 PRN PRN Reason: Nausea/Vomiting Pantoprazole Sodium (Protonix Ec Tab) 40 mg PO DAILY [facility] Polyethylene Glycol (Miralax) 17 gm PO DAILY [facility] - Labs Labs: 11/27/17 06:16 11/27/17 06:16 PT 11.9 SECONDS (9.7-12.2) 11/27/17 07:15 INR 1.1 11/27/17 07:15 Attending/Attestation - Attestation I have personally seen and examined this patient.: Yes I have fully participated in the care of the patient.: Yes I have reviewed all pertinent clinical information, including history, physical exam and plan: Yes Notes (Text): 11/28/17 13:05 47 year old male with h/o chronic pancreatitis c/b pseudocyst s/p prior surgical drainage, gastric outlet obstruction s/p gastroenterostomy admitted with abdominal pain and vomiting. 1. Abdominal pain 2. Chronic pancreatitis Plan: -CT- reviewed, no pseudocyst, abnormal imaging of panc head -recommend outpatient EUS when acute illness resolves -continue panc enzymes, ppi daily -advise etoh/smoking abstinence -low fat diet as tolerated -ok for discharge
[2017-11-28] MEDS: POLYETHYLENE GLYCOL 3350 17 GM/Dose PACKET PO SCH (13:26)
[2017-11-29] MEDS: POLYETHYLENE GLYCOL 3350 17 GM/Dose PACKET PO SCH (09:44)
[2017-11-29] MEDS: Pantoprazole 40 mg EC Tab PO SCH (09:44)
[2017-11-29] MEDS: Enoxaparin 30 mg Syringe SC SCH (09:44)
[2017-11-29] MEDS: LIPASE/PROTEASE/AMYLASE 4,200 U ECC PO SCH ×3 (09:44→17:23)
[2017-11-29] MEDS: Dextrose 5%/0.45% NS 1,000 ML IV SCH ×2 (15:35→18:58)
[2017-11-30 08:43] VITALS: BP 146/90; PULSE 76; TEMP 97.4; O2SAT 98
[2017-11-30] MEDS: Pantoprazole 40 mg EC Tab PO SCH (09:33)
[2017-11-30] MEDS: POLYETHYLENE GLYCOL 3350 17 GM/Dose PACKET PO SCH (09:33)
[2017-11-30] MEDS: Enoxaparin 30 mg Syringe SC SCH (09:33)
[2017-11-30] MEDS: LIPASE/PROTEASE/AMYLASE 4,200 U ECC PO SCH ×2 (09:34→13:22)
--- NOTE | 2017-11-30 10:59 | CP.PCM.PN ---
Subjective - Date & Time of Evaluation Date of Evaluation: 11/30/17 Time of Evaluation: 10:10 - Subjective Subjective: PGY2 Medicine Note- Dr. Ferguson's service Patient seen and examined in no apparent acute distress. Patient states that he still has some mild pain in the periumbilical area but reports that this is much improved from a few days earlier. Patient states that he has been meaning to follow up with a [facility] for the past couple of months however he had not had the chance to until this admission. He stated that he used to follow with a doctor at [facility], but learned that the doctor was now out of his insurance network. Patient is tolerating a diet. He is going to the bathroom and having soft stools. Objective - Vital Signs/Intake and Output Vital Signs (last 24 hours): Temp Pulse Resp BP Pulse Ox 97.4 F L 76 20 146/90 98 11/30/17 08:40 11/30/17 08:40 11/30/17 08:40 11/30/17 08:40 11/30/17 08:40 Intake and Output: 11/30/17 11/30/17 06:59 18:59 Intake Total 1740 Balance 1740 - Medications Medications: Current Medications Ciprofloxacin (Cipro) 500 mg PO BID [facility] Last Admin: 11/30/17 09:33 Dose: 500 mg Enoxaparin Sodium (Lovenox) 30 mg SC DAILY [facility] Last Admin: 11/30/17 09:33 Dose: 30 mg Hydromorphone HCl (Dilaudid) 1 mg IVP Q4H PRN PRN Reason: Pain, moderate (4-7) Last Admin: 11/30/17 08:40 Dose: 1 mg Ondansetron HCl (Zofran Inj) 4 mg IVP Q8 PRN PRN Reason: Nausea/Vomiting Pantoprazole Sodium (Protonix Ec Tab) 40 mg PO DAILY [facility] Last Admin: 11/30/17 09:33 Dose: 40 mg Polyethylene Glycol (Miralax) 17 gm PO DAILY [facility] Last Admin: 11/30/17 09:33 Dose: 17 gm - Labs Labs: 11/27/17 06:16 11/27/17 06:16 PT 11.9 SECONDS (9.7-12.2) 11/27/17 07:15 INR 1.1 01/05/18 07:15 - Constitutional Appears: Non-toxic, No Acute Distress - Head Exam Head Exam: ATRAUMATIC, NORMAL INSPECTION, NORMOCEPHALIC - Eye Exam Eye Exam: EOMI, Normal appearance - ENT Exam ENT Exam: Mucous Membranes Moist - Neck Exam Neck Exam: Full ROM - Respiratory Exam Respiratory Exam: NORMAL BREATHING PATTERN. absent: Wheezes - Cardiovascular Exam Cardiovascular Exam: +S1, +S2 - GI/Abdominal Exam GI & Abdominal Exam: Soft, Tenderness (mild in periumbilical area), Normal Bowel Sounds. absent: Guarding, Rigid - Back Exam Back Exam: Full ROM - Neurological Exam Neurological Exam: Alert, Awake, Oriented x3 - Psychiatric Exam Psychiatric exam: Normal Affect, Normal Mood - Skin Skin Exam: Normal Color, Warm Assessment and Plan - Assessment and Plan (Free Text) Assessment: (1) Pancreatitis Assessment & Plan: CT scan- Enlarged pancreatic head; Pancreatic and CBD mildly dilated; gastric antritis or duodenitis- Refer to complete report. Patient's pain has improved GI recommendations- Recommendations for outpatient EUS . Alcohol cessation Low-fat diet Status: Acute (2) UTI (urinary tract infection) Assessment & Plan: Culture grew out e.coli On Cipro for two days. Will provide a script for the remaining five days. Status: Acute (3) Prophylactic measure Assessment & Plan: Lovenox 30mg daily Protonix 40mg daily Status: Acute Discharge Plan Patient is medically stable for discharge home. Patient to follow up n the [facility] for follow up within the next week. Patient should call [phone] to make an appointment. Patient should follow up with [facility], Dr. Romero within the next two weeks for follow up care. Patient is strongly encouraged to stop drinking alcohol at this time. Patient to continue antibiotics for the next five days. Patient should eat a probiotic yogurt daily as well for the next five days. If symptoms return, go to the emergency room. Instructions explained to patient who is aware. Discussed with attending. All management and planning per Dr. Ferguson
--- NOTE | 2017-11-30 12:09 | HP ---
HISTORY OF PRESENT ILLNESS: The patient was admitted to the hospital with chief complaint of abdominal pain, nausea and vomiting. The patient came to the ER, advised admission. Patient has history of pancreatitis, history of alcoholism. PHYSICAL EXAMINATION: GENERAL: The patient is awake, alert, oriented. VITAL SIGNS: Temperature 98, pulse 90. HEENT: Within normal limits. NECK: Supple. CHEST: Symmetrical. HEART: Regular. ABDOMEN: Soft. EXTREMITIES: No edema. PLAN: The patient gets bedrest, supportive care, IV fluids. Shivam Ferguson MD
--- NOTE | 2017-12-01 08:11 | PN ---
DATE: 11/29/2017 SUBJECTIVE: The patient needs supportive care. Complaining of abdominal pain, constipation. PLAN: Amena given. Shivam Ferguson MD
== END 2017-11-30 16:10 | disposition home or self-care (01) | DRG 440 ==
LOC: C.ER 14:37 → C.9E 19:57 → C.3T 20:31
PROVIDERS: ADMIT Internal Medicine Pulmonary Disease; ATTEND Internal Medicine Pulmonary Disease
DX: K85.20 Alcohol induced acute pancreatitis without necrosis or infection (principal); K86.0 Alcohol-induced chronic pancreatitis; F10.20 Alcohol dependence, uncomplicated; K29.70 Gastritis, unspecified, without bleeding; N20.0 Calculus of kidney; K59.00 Constipation, unspecified; Z87.891 Personal history of nicotine dependence

== ENCOUNTER 2018-01-18 06:35 | Day surgery (SDC) | payer OTHER ==
[2017-12-01 09:59] VITALS: BMI 20.9
[2018-01-18 07:50] VITALS: O2SAT 100
[2018-01-18] MEDS ORDERED: Sodium Chloride 0.9% 1,000 ML IV ONE (08:05)
[2018-01-18 09:08] VITALS: TEMP 97.5
[2018-01-18 10:00] VITALS: BP 146/90; PULSE 73; RESP 18
== END 2018-01-18 10:45 | disposition home or self-care (01) ==
LOC: C.ENDO 06:35
PROVIDERS: ATTEND Internal Medicine
DX: K86.0 Alcohol-induced chronic pancreatitis (principal); K86.3 Pseudocyst of pancreas; R63.0 Anorexia; Z98.0 Intestinal bypass and anastomosis status; K28.9 Gastrojejunal ulcer, unspecified as acute or chronic, without hemorrhage or perforation; K29.80 Duodenitis without bleeding; K86.89 Other specified diseases of pancreas; I10 Essential (primary) hypertension; Z68.21 Body mass index [BMI] 21.0-21.9, adult; Z87.891 Personal history of nicotine dependence; Z79.899 Other long term (current) drug therapy
CPT/HCPCS: 43238; 43239; 88305; J7040